=== PATIENT | male | born 1995 | race Caucasian/White ===

== ENCOUNTER 2017-11-06 08:11 | Emergency (ER) | payer OTHER ==
[~2017-11-06] VITALS: Ht 172.7 cm; Wt 111.1 kg
[~2017-11-06 08:11] MED LIST: OMEPRAZOLE40 M1 PO
--- NOTE | 2017-11-06 10:33 | ED CARDIAC/CP/PALPITATIONS ---
History of Present Illness General Chief Complaint: Chest Pain Stated Complaint: CHEST PAIN Source: patient, old records Exam Limitations: no limitations Vital Signs & Intake/Output Vital Signs & Intake/Output Vital Signs Date Time Temp Pulse Resp B/P B/P Pulse O2 O2 Flow FiO2 Mean Ox Delivery Rate 11/06 1404 97.7 81 16 110/68 98 Room Air 11/06 1130 98.2 68 18 107/67 97 Room Air 11/06 1008 Room Air Room Air 11/06 0817 98.3 83 18 131/81 97 Room Air Allergies Coded Allergies: NO KNOWN ALLERGIES (11/06/17) Reconcile Medications Omeprazole 40 MG CAPSULE. 1 CAP PO DAILY ACID REFLUX Triage Note: 22 YO MALE TO TRIAGE C/O TIGHTNESS AND PAIN IN CENTER OF CHEST WITH SOB. STATES THE PAIN STARTED, STATES HE TOOK SOME MOTRIN WITH SOME RELIEF. STATE HX OF PERICARDITIS. EKG IN PROGRESS ON ARRIVAL. Triage Nurses Notes Reviewed? yes HPI: 22M PMH myopericarditis diagnosed 4 years ago with 2 recurrences since, presents with 1 day of mid-sternal chest pain, non-radiating, non-exertional, similar to prior episodes of pericarditis. It is associated with shortness of breath at rest and dyspnea on exertion. He has no other complaints and otherwise feels well. No toxic exposures, recent illnesses or URIs, or sick contacts. Past History Travel History Traveled to [place] past 21 day No Medical History Any Pertinent Medical History? see below for history Cardiovascular: PARICARDITIS History of MRSA: No History of VRE: No History of CDIFF: No Surgical History Surgical History: non-contributory Psychosocial History Who do you live with Family Services at Home None What is your primary language Hebrew Tobacco Use: Never used Family History Hx Contributory? No Review of Systems Review of Systems Constitutional: Reports: no symptoms. EENTM: Reports: no symptoms. Respiratory: Reports: no symptoms. Cardiovascular: Reports: see HPI. GI: Reports: no symptoms. Genitourinary: Reports: no symptoms. Musculoskeletal: Reports: no symptoms. Skin: Reports: no symptoms. Neurological/Psychological: Reports: no symptoms. Hematologic/Endocrine: Reports: no symptoms. Immunologic/Allergic: Reports: no symptoms. All Other Systems: Reviewed and Negative Physical Exam Physical Exam General Appearance: well developed/nourished, no apparent distress Head: atraumatic, normal appearance Eyes: Bilateral: normal appearance. Ears, Nose, Throat: normal pharynx, hearing grossly normal Neck: normal inspection, supple, full range of motion, No JVD Respiratory: normal breath sounds, chest non-tender, no respiratory distress Cardiovascular: regular rate/rhythm, no murmurs or rubs Gastrointestinal: soft, non-tender Back: normal inspection, normal range of motion Extremities: normal inspection, normal range of motion Neurologic/Psych: awake, alert, oriented x 3, normal mood/affect Skin: intact, normal color, warm/dry Core Measures ACS in differential dx? No CVA/TIA Diagnosis No Sepsis Present: No Sepsis Focused Exam Completed? No Progress Differential Diagnosis: AMI, aortic dissection, atrial fibrillation, cholecystitis, CHF/pulm edema, costochondritis, hyperkalemia, hypovolemia, hyperthyroid, hyperventilation, intracranial hemorrhage, musculoskeletal pain, myocarditis, pancreatitis, pericarditis, pneumonia, pneumothorax, PSVT, pulmonary embolism, PUD/GERD, PVCs/PACs, respiratory failure, rib fracture, sepsis, unstable angina, V-fib/V-Tach, WPW syndrome Plan of Care: Orders Procedure Date/time Status Regular Diet 11/06 L Active TROPONIN LEVEL 11/06 1400 Complete EKG 11/06 1400 Active TROPONIN LEVEL 11/06 0953 Complete COMPREHENSIVE METABOLIC PANEL 11/06 0953 Complete CBC WITHOUT DIFFERENTIAL 11/06 0953 Complete EKG 11/06 0815 Active Laboratory Tests 11/06/17 1357: Troponin I < 0.01 11/06/17 1006: Anion Gap 9, Estimated GFR > 60, BUN/Creatinine Ratio 17.8, Glucose 89, Calcium 9.5, Total Bilirubin 1.0, AST 34, ALT 73 H, Alkaline Phosphatase 65, Troponin I < 0.01, Total Protein 7.5, Albumin 4.3, Globulin 3.2, Albumin/Globulin Ratio 1.3 , CBC w Diff NO MAN DIFF REQ, RBC 5.21, MCV 85.2, MCH 28.4, MCHC 33.3, RDW 13.0, MPV 8.4, Gran % 55.4, Lymphocytes % 31.5, Monocytes % 7.4, Eosinophils % 5.2 H, Basophils % 0.5, Absolute Granulocytes 3.8, Absolute Lymphocytes 2.2, Absolute Monocytes 0.5, Absolute Eosinophils 0.4, Absolute Basophils 0 Initial ED EKG: normal sinus rhythm, no ST T wave changes Repeat EKG: changed (SMALL NM DEPRESSIONS LATERAL) Departure Departure Disposition: HOME OR SELF CARE Condition: Stable Clinical Impression Primary Impression: Acute pericarditis Referrals: Ervin MORALES,Tomas Hawkins (PCP/Family) Additional Instructions: Follow up with Dr. Solsi on Wednesday. Take Ibuprofen 600mg every 6 hours until then. If any new or worsening symptoms, return to emergency department. Departure Forms: Customer Survey General Discharge Information Critical Care Note Critical Care Note Critical Care Time: 30-74 min
[2017-11-06 10:38] LABS: ABSOLUTE BASOPHIL COUNT 0 /CUMM (0.0-0.2); ABSOLUTE EOSINOPHIL COUNT 0.4 /CUMM (0.0-0.7); ABSOLUTE GRANULOCYTE CT 3.8 /CUMM (1.4-6.5); ABSOLUTE LYMPH COUNT 2.2 /CUMM (1.2-3.4); ABSOLUTE MONOCYTE COUNT 0.5 /CUMM (0.10-0.60); BASOPHIL % 0.5 % (0.0-2.0); EOSINOPHIL % 5.2 % (0-5); GRANULOCYTE % 55.4 % (42.2-75.2); HEMATOCRIT 44.3 % (42-52); MEAN CORPUSCULAR HGB 28.4 PG (27.0-31.0); MEAN CORPUSCULAR HGB CONC 33.3 G/DL (33.0-37.0); MEAN CORPUSCULAR VOLUME 85.2 FL (80.0-94.0); MEAN PLATELET VOLUME 8.4 FL (7.4-10.4); PLATELET COUNT 235 /CUMM (130-400); RED BLOOD CELL CT 5.21 /CUMM (4.70-6.10); WHITE BLOOD CELL COUNT 6.8 /CUMM (4.8-10.8)
--- NOTE | 2017-11-06 11:16 | Cons- Cardiology ---
General Information and HPI Consulting Request Date of Consult: 11/06/17 Requested By: Dr. Aguilar Reason for Consult: Chest pain History of Present Illness: The patient is a 22-year-old male with history of prior episode of myopericarditis. He follows up with me in the office and has been doing well for the last 2 years. He now presents with complaint of tightness in the chest which began yesterday and has been constant since that time. He has been taking Motrin with some relief. The pain is a 3 out of 10 in severity located in the center of his chest with no radiation. The pain is nonexertional. He has mild shortness of breath which is worse with exertion. The pain feels similar to his prior myopericarditis but less severe. Allergies/Medications Allergies: Coded Allergies: NO KNOWN ALLERGIES (11/26/13) Home Med List: Omeprazole 40 MG CAPSULE.DR Navarrete CAP PO DAILY ACID REFLUX Review of Systems Review of Systems: No rash. No tremor. No melena. All other systems were reviewed, and were noted to be negative. Past History Travel History Traveled to [place] past 21 day No Medical History Cardiovascular: PARICARDITIS Surgical History Surgical History: non-contributory Family History Relations & Conditions If Any: FATHER Coronary artery disease Psychosocial History Services at Home: None Exam & Diagnostic Data Vital Signs and I&O Vital Signs Date Time Temp Pulse Resp B/P B/P Pulse O2 O2 Flow FiO2 Mean Ox Delivery Rate 11/06 1008 Room Air Room Air 11/06 0817 98.3 83 18 131/81 97 Room Air Intake & Output 11/06 1600 11/06 0800 11/06 0000 11/05 1600 11/05 0800 11/05 0000 Intake Total 0 Output Total Balance 0 Intake, Oral 0 Patient 245 lb Weight Weight Reported by Patient Measurement Method Physical Exam: Gen: The patient is in no acute distress HEENT: Normal nose, ears, and oropharynx. Pupils equal bilaterally. Conjunctiva normal. Neck: Supple with no JVD, no masses, and no thyromegaly Lungs: Clear to auscultation with normal respiratory effort Heart: RRR, S1, S2, no murmurs. No peripheral edema, 2+ pulses in the lower extremities bilaterally Abdomen: Soft, nontender, no masses. No hepatomegaly. No splenomegaly Extremities: No clubbing or cyanosis. Normal muscle strength in the upper and lower extremities Skin: Normal skin turgor with no skin ulcers or lesions noted. Neuro: Cranial nerves intact. Sensation intact Psych: Alert and oriented x 3 with appropriate affect Labs/Johan Results: Laboratory Tests 11/06 1006 Chemistry Sodium (137 - 145 mmol/L) 139 Potassium (3.5 - 5.1 mmol/L) 4.4 Chloride (98 - 107 mmol/L) 99 Carbon Dioxide (22 - 30 mmol/L) 30 Anion Gap (5 - 16) 9 BUN (9 - 20 mg/dL) 16 Creatinine (0.7 - 1.2 mg/dL) 0.9 Estimated GFR (>60 ml/min) > 60 BUN/Creatinine Ratio (7 - 25 %) 17.8 Glucose (65 - 99 mg/dL) 89 Calcium (8.4 - 10.2 mg/dL) 9.5 Total Bilirubin (0.2 - 1.3 mg/dL) 1.0 AST (17 - 59 U/L) 34 ALT (21 - 72 U/L) 73 H Alkaline Phosphatase (< 127 U/L) 65 Troponin I (<0.11 ng/ml) < 0.01 Total Protein (6.3 - 8.2 g/dL) 7.5 Albumin (3.5 - 5.0 g/dL) 4.3 Globulin (1.9 - 4.2 gm/dL) 3.2 Albumin/Globulin Ratio (1.1 - 2.2 %) 1.3 Hematology CBC w Diff NO MAN DIFF REQ WBC (4.8 - 10.8 /CUMM) 6.8 RBC (4.70 - 6.10 /CUMM) 5.21 Hgb (14.0 - 18.0 G/DL) 14.8 Hct (42 - 52 %) 44.3 MCV (80.0 - 94.0 FL) 85.2 MCH (27.0 - 31.0 PG) 28.4 MCHC (33.0 - 37.0 G/DL) 33.3 RDW (11.5 - 14.5 %) 13.0 Plt Count (130 - 400 /CUMM) 235 MPV (7.4 - 10.4 FL) 8.4 Gran % (42.2 - 75.2 %) 55.4 Lymphocytes % (20.5 - 51.1 %) 31.5 Monocytes % (1.7 - 9.3 %) 7.4 Eosinophils % (0 - 5 %) 5.2 H Basophils % (0.0 - 2.0 %) 0.5 Absolute Granulocytes (1.4 - 6.5 /CUMM) 3.8 Absolute Lymphocytes (1.2 - 3.4 /CUMM) 2.2 Absolute Monocytes (0.10 - 0.60 /CUMM) 0.5 Absolute Eosinophils (0.0 - 0.7 /CUMM) 0.4 Absolute Basophils (0.0 - 0.2 /CUMM) 0 Diagnostic Data EKG Results EKG tracing is independently reviewed, and reveals normal sinus rhythm at 77 with left atrial abnormality. There are no ST changes suggestive of pericarditis Assessment/Plan Assessment/Plan 22-year-old male with history of pericarditis 2 years ago presenting with chest pain. No significant ST changes are noted on his EKG. Recommendations: * Chest x-ray * Check troponin 2 * If no significant abnormalities are seen on the above testing, then it would be reasonable to discharge the patient to home. I recommend that he take ibuprofen 600 mg p.o. every 8 hours until the pain resolves. I advised him to follow up with me in the office on Wednesday of this week, and to call if he has further symptoms in the meantime Consult Acknowledgment - Thank you for your consult request.
[2017-11-06 15:25] VITALS: BP 106/59
== END 2017-11-06 15:40 ==
LOC: ERH 08:11
PROVIDERS: Internal Medicine
DX: I30.9 Acute pericarditis, unspecified (principal); R07.89 Other chest pain
CPT/HCPCS: 93005; 93010